=== PATIENT | female | born 1970 | race Two or more races ===

== ENCOUNTER 2021-09-03 10:08 | Outpatient (CLI) | payer OTHER, SELFPAY ==
[2021-09-03 17:14] LABS: Iron* 113 ug/dL (37-170)
[2021-09-03 17:23] LABS: Percent Iron Saturation 29 % (20-50); Total Iron Binding Capacity 396 ug/dL (265-497)
== END 2021-09-03 10:09 | disposition home or self-care (01) ==
LOC: LONREF 10:13
PROVIDERS: PCP Nurse Practitioner Family; Visit Provider Nurse Practitioner Family
DX: R53.83 Other fatigue (principal); E11.9 Type 2 diabetes mellitus without complications
CPT/HCPCS: 83540; 83550

== ENCOUNTER 2022-10-15 08:00 | Outpatient (CLI) | payer OTHER, SELFPAY | END 2022-10-15 08:01 | disposition home or self-care (01) | PROVIDERS: PCP Family Medicine; Visit Provider Family Medicine | DX: I10 Essential (primary) hypertension (principal); E78.5 Hyperlipidemia, unspecified | CPT/HCPCS: 80048; 80061 ==

== ENCOUNTER 2022-11-02 10:00 | Outpatient (CLI) | payer OTHER, MEDICAID, SELFPAY ==
--- NOTE | 2022-11-02 11:23 | W.ANESCHARGE ---
Anesthesia Charges Start Date/Time Anesthesia Start Date: 11/02/22 Anesthesia Start Time: 10:41 Stop Date/Time Anesthesia Stop Date: 11/02/22 Anesthesia Stop Time: 11:20
--- NOTE | 2022-11-02 12:07 | W.ANESCHARGE ---
Anesthesia Charges Start Date/Time Anesthesia Start Date: 11/02/22 Anesthesia Start Time: 10:41 Stop Date/Time Anesthesia Stop Date: 11/02/22 Anesthesia Stop Time: 11:20
== END 2022-11-02 10:01 | disposition home or self-care (01) ==
PROVIDERS: PCP Family Medicine; Visit Provider Surgery
DX: Z12.11 Encounter for screening for malignant neoplasm of colon (principal); K64.9 Unspecified hemorrhoids; K63.5 Polyp of colon
CPT/HCPCS: 00811; 45385; 88305; T1013; J2704

== ENCOUNTER 2023-07-22 09:32 | Outpatient (CLI) | payer BC, SELFPAY | END 2023-07-22 09:33 | disposition home or self-care (01) | LOC: LKVREF 09:33 | PROVIDERS: PCP Family Medicine; Visit Provider Obstetrics & Gynecology | DX: R32 Unspecified urinary incontinence (principal); B96.20 Unspecified Escherichia coli [E. coli] as the cause of diseases classified elsewhere | CPT/HCPCS: 87086; 87186 ==

== ENCOUNTER 2023-09-05 08:58 | Outpatient (CLI) | payer BC, SELFPAY | END 2023-09-05 08:59 | disposition home or self-care (01) | PROVIDERS: PCP Family Medicine; Visit Provider Family Medicine | DX: Z01.818 Encounter for other preprocedural examination (principal); I10 Essential (primary) hypertension; E78.5 Hyperlipidemia, unspecified; E11.9 Type 2 diabetes mellitus without complications | CPT/HCPCS: 80048; 80061 ==

== ENCOUNTER 2023-09-15 08:15 | Day surgery (SDC) | payer BC, SELFPAY ==
[2023-09-15] VITALS (19 sets, daily range): BP systolic 107–138; BP diastolic 61–99; PULSE 71–100; RESP 14–18; TEMP 36.1–37.1; O2SAT 97–100; BMI 22.5
[2023-09-15] MEDS: SODIUM CHLORIDE 0.9 % (FLUSH) 10 ML SYRINGE IVF (09:37)
[2023-09-15] MEDS: LACTATED RINGERS 1000 ML 1,000 ML 100 ML IV ×2 (09:37→12:07)
[2023-09-15 09:39] LABS: Hemoglobin* 13.4 gm/dL (12.0-16.0)
--- NOTE | 2023-09-15 09:49 | W.PM.H&PU ---
History & Physical Update History & Physical Update H&P Reviewed and patient assessed: No changes noted
[2023-09-15 09:53] LABS: Creatinine* 0.6 mg/dL (0.5-1.5); Est. Creatinine Clearance* 77.89; Estimated Glomerular Filt Rate 107 ml/min
[2023-09-15] MEDS: CEFAZOLIN 2 GM INJ IVP (10:06)
--- NOTE | 2023-09-15 11:01 | W.ANESCHARGE ---
Anesthesia Charges Start Date/Time Anesthesia Start Date: 09/15/23 Anesthesia Start Time: 09:50 Stop Date/Time Anesthesia Stop Date: 09/15/23 Anesthesia Stop Time: 12:59
[2023-09-15] MEDS: ESTROGENS, CONJUGATED VAGINAL 0.625 MG/G CREAM 1 APPLIC VAGINAL (12:32)
--- NOTE | 2023-09-15 12:57 | W.PM.GYNPROC ---
Procedure Note Date of procedure: 09/15/23 Will [facility] bill your pro fee for this procedure?: Yes Pre-op diagnosis: Pelvic Organ Prolapse, Stress Urinary Incontinence Post-op diagnosis: Pelvic Organ Prolapse, Stress Urinary Incontinence Procedure: Anterior and Posterior Colporrhaphy, Perineorrhaphy, Placement of single incision mini midurethral sling, cystoscopy Anesthesia: GETA Complications: None Surgeon: Anisha Acuna MD Sterilizer Machine Operator: Radha Capone Estimated blood loss (mL): 150 IV fluids (mL): 800 Urine Output (mL): 150 Pathology: none sent Condition: stable Disposition: floor Findings: Pelvic Exam: Posterior vaginal wall prolapse grade 4, anterior vaginal wall prolapse grade 2, vaginal cuff well supported. Cystoscopy: gas bubbles seen, bilateral ureteral jets seen, no suture material noted, one area at the dome of the bladder with a small blood clot most likely secondary to Barnard catheter. Posterior urethra without evidence of suture material or mesh. Procedure Description: Patient taken to operating room and GETA placed without difficulty. Patient placed in the lithotomy position cleansed and draped in the usual sterile manner. Barnard Catheter placed and bladder drained adequately. Attention was placed to the posterior vaginal wall prolapse. Two Allis clamps were placed at the level of the posterior hymen in a horizontal fashion about 4cm apart. Another Allis clamp was placed at the apex of the prolapse in the midline close to the vaginal cuff. Dilute solution of 1 % lidocaine and epinephrine was utilized for hydrodissection and injected to the vaginal mucosa, a horizontal incision was then made between the two Allis clamps, using Metzenbaum the vaginal mucosa was from underlying muscularis, a vertical incision was made using Metzenbaum scissors until about 1 cm below the apex. The edges of the vagina were grasped with Alvarez clamps and dissection of the vaginal flap was accomplished using the forefingers as well as Metzembaum scissors. The dissection was extended bilaterally until the rectocele was dissected completely from the vaginal wall. Utilizing Vicryl 2-0, plicating sutures were placed interruptedly in the vaginal muscularis and adventitia with resulting reduction of prolapse. The excess vaginal epithelium was then trimmed using Metzenbaum scissors. Proceeded with perineorrhaphy and a triangular incision was made into the midline of the perineum with the base of the triangle being the posterior hymen Allis clamps. The bulbocavernous and superficial transverse perineal muscles were plicate din the midline with interrupted sutures of Vicryl 2-0. The posterior vaginal mucosa was then closed using continuous interlocking suture of Vicryl 3-0. Perineal skin also approximated. Hemostasis secured. Attention was then placed to the anterior vagina. One Allis was placed 1cm from the external urethral meatus in the midline, a second Allis clamp was placed at about 2.5cm from the external urethral meatus to izzy the incision site for midurethral sling placement. Attention was then made to the anterior vaginal wall prolapse, using two Allis clamps the vagina mucosa was grasped at the apex of the prolapse, dilute solution of 1 % lidocaine and epinephrine was utilized for hydrodissection and injected to the vaginal mucosa, a 4cm horizontal incision was made between the two Allis clamps, using Metzenbaum the vaginal mucosa was from underlying muscularis, a vertical incision was made using Metzenbaum scissors until about 1 cm below the previously marked vagina. The edges of the vagina were grasped with Alvarez clamps and dissection of the vaginal flap was accomplished using the forefingers. The dissection was extended bilaterally until the cystocele was dissected completely from the vaginal wall. Utilizing Vicryl 2-0, plicating sutures were placed interruptedly in the vaginal muscularis and adventitia with resulting reduction of prolapse. The excess vaginal epithelium was then trimmed using Metzenbaum scissors and the anterior vaginal wall was closed using interrupted Vicryl 3-0. Attention was then placed to the midurethra, to the previously marked midurethra. Allis clamps were placed at the 1cm izzy and the 2.5cm izzy. Hydrodissection was made using dilute solution of 1 % lidocaine and epinephrine. A vertical incision was made between clamps and using Metzembaum scissors the vaginal mucosa was from the muscularis in a 45 degree angle until reaching the ischiopubic rami, same procedure was performed on the left. Edison sling was loaded into trocar and inserted to follow the incision, angled at a 45 degree until feeling the ischiopubic bone, the obturator internus muscle felt and progressive gentle pressure made until 2 clicks heard, and the trocar izzy was seen at the midurethra, the sling was deployed. The left end of sling was attached to trocar and same procedure was performed on the patients left. The trocar was left in place and not deployed, but significant bleeding was noted from dissection site and decision was made to evaluate the mesh at the mid urethra, mesh evaluated to have adequate tension. The trocar was deployed. The vaginal tissue was approximated with interrupted Vicryl 3-0 and pressure was then made to the left vaginal sulcus. This created adequate hemostasis. Sodium fluorescein had been given in preparation for cystoscopy. Cystoscopy was afterwards performed using a 30 degree scope. Findings as above. 2 connected vaginal packings with Premarin cream was placed vaginally, Barnard catheter placed again without difficulty and bright yellow/green urine seen. Patient did receive antibiotic prophylaxis with Ancef 2 g starting procedure.After finishing procedure, instrument and sponge count were correct times two. The patient was awaken from anesthesia and taken to recovery room in a stable condition. She will be monitored over night and post void residual volume will me measured in the morning.
--- NOTE | 2023-09-15 13:01 | W.ANESCHARGE ---
Anesthesia Charges Start Date/Time Anesthesia Start Date: 09/15/23 Anesthesia Start Time: 09:50 Stop Date/Time Anesthesia Stop Date: 09/15/23 Anesthesia Stop Time: 12:59
[2023-09-15] MEDS: ACETAMINOPHEN 500 MG TABLET 1000 MG PO (16:23)
[2023-09-15] MEDS: OXYCODONE 5 MG TABLET PO (18:28)
[2023-09-15] MEDS: KETOROLAC 30 MG/ML inj IVP (19:23)
--- NOTE | 2023-09-15 23:17 | PC.NURSE ---
End of Shift: Alert and orientated, pleasant... the patients daughter helps translate during cares. Barnard is patent and draining bright yellow urine from dye from surgery. VSS on RA... no issues. The patient reported a significant amount of leg/ chest heaviness. MD was notified, and the issue was improved per the patient. Saline locked, no N/V. Pain is noted to be moderate-severe in her vagina. Tylenol, tordol and PRN oxy order was obtained from interventional radiologist OBGYN. The patient reports adequate relief after administration. SCDs in place. Tolerating a regular diet with no issues. The patient did not want to ambulate/ dangle at the bedside due to leg heaviness. microbiological lab technician to come around 9 tomorrow. Call light within reach. The patients daughter is staying the night. Namita STEPHENS BSN
[2023-09-16 00:27] VITALS: BP 112/65; PULSE 69; RESP 16; TEMP 37.1; O2SAT 97
[2023-09-16] MEDS: OXYCODONE 5 MG TABLET PO (00:33)
[2023-09-16] MEDS: KETOROLAC 30 MG/ML inj IVP (00:34)
[2023-09-16] MEDS: IBUPROFEN 600 MG TABLET PO (04:33)
[2023-09-16 04:34] VITALS: BP 105/64; PULSE 67; RESP 16; TEMP 36.9; O2SAT 96
--- NOTE | 2023-09-16 06:38 | PC.NURSE ---
End of shift [id number]: A&O pleasant and cooperative. Daughter at bedside to translate when needed. Pt reports vaginal pain. See eMAR for interventions. Pt reports legs feeling stronger but doesn?t want get up overnight. Barnard in place and draining. VSS w/ sats >90% on RA. Using call light appropriately. ?
[2023-09-16 06:47] LABS: Hemoglobin* 11.4 gm/dL (12.0-16.0)
[2023-09-16 06:58] LABS: Creatinine* 0.6 mg/dL (0.5-1.5); Est. Creatinine Clearance* 77.89; Estimated Glomerular Filt Rate 107 ml/min
[2023-09-16 07:27] VITALS: BP 114/69; PULSE 67; RESP 16; TEMP 37.2; O2SAT 96
--- NOTE | 2023-09-16 07:57 | P.DS_ITS ---
DS: Providers Provider Date Seen: 09/16/23 Primary care physician: Sahil Agarwal MD Attending Physician on discharge: Dunia Acuna MD Date of Discharge: 09/16/23 DS: Diagnosis Discharge Diagnosis (1) S/P anterior colporrhaphy: Status: Acute Problem details: S/P Anterior and posterior colporrhaphy, perineorrhaphy, single incision mini sling insertion, cystoscopy FOLDING MACHINE TENDER-Discharge Summary Hospital Course Hospital Course Narrative: Patient is a 53 year old admitted on 09/15/23 for elective surgery. Indication for surgery: Pelvic organ prolapse. Intraoperative findings were notable for anterior vaginal wall prolapse grade 2, posterior vaginal wall prolapse grade 4, urinary stress incontinence. She had an uncomplicated surgery. Postoperative course has been uneventful. Vitals have been stable. She has remained afebrile. Today, on postoperative day 1, she reports the pain is well controlled. She has been able to ambulate Without difficulty. She is tolerating regular diet. She is passing flatus. Barnard catheter has been removed, and she is voiding without difficulty. Time Spent with Patient Time attestation: Total time spent providing and/or coordinating discharge services: FOLDING MACHINE TENDER - Exam Physical Exam: Vital signs: Temp Pulse Resp BP Pulse Ox O2 Del Method 98.5 F 67 16 105/64 96 Room Air 09/16/23 04:34 09/16/23 04:34 09/16/23 04:34 09/16/23 04:34 09/16/23 04:34 09/16/23 04:34 Narrative: VITAL SIGNS: As noted above. GENERAL APPEARANCE: Alert, cooperative female in no acute distress. MOOD & AFFECT: Normal. ABDOMEN: Soft, non-distended and nontender. Positive bowel sounds. : 2 connected vaginal packings removed and not soaked. No active bleeding noted after removal. Pad noted to filled with dark brown blood half of it, had not been changed since surgery. Barnard catheter with 250mL of bright yellow urine. EXTREMITIES: Nonedematous. Well perfused. Nontender. FOLDING MACHINE TENDER - DS: Data Data Completed and Pending Labs on day of discharge: Labs from last 24 hours 09/16/23 09/15/23 06:21 09:30 Hgb 11.4 L 13.4 Creatinine 0.6 0.6 Estimated Creat Clear 77.89 77.89 Estimated GFR 107 107 Procedures Procedures: Procedures Operation Date: 09/15/23 09:40 Actual Procedure Side Surgeon p Placement of Mid Urethral Sling Dunia Acuna MD s Anterior, Posterior Colporrhaphy, Cystoscopy, perineorapphy Dunia Spencer MD Discharge Plan Discharge Disposition: Home w/ Parent or Adult Discharging Surgeon: Dunia Acuna Follow-Up Appointment: 2 weeks in clinic Prescriptions: New acetaminophen 500 mg Tablet 1,000 mg PO Q6H PRN (Reason: minor pain) Qty: 15 0RF docusate sodium 100 mg Capsule 100 mg PO BID PRN (Reason: Constipation) Qty: 30 0RF ibuprofen 600 mg Tablet 600 mg PO Q6H Qty: 30 0RF Continued multivitamin [Multiple Vitamins] Tablet 1 tab PO QAM metformin 500 mg tablet 500 mg PO BIDWMEAL Qty: 180 3RF lisinopril 10 mg tablet 10 mg PO DAILY Discontinued acetaminophen 325 mg capsule 650 mg PO QID PRN Activity Level: Activity as Tolerated Activity Detail: No lifting more than 15-20 pounds for 6 weeks, nothing vaginally for 6 weeks, no soaking in tubs/lakes/pools until 2 week post op visit. Discharge Diet: Diabetic Patient Instructions: Acetaminophen (By mouth), Ibuprofen (By mouth), Laxative, Stool Softeners (By mouth), Deep Sedation (DC), Bladder Sling for Women (DC) Follow-up: Dunia Acuna MD [Staff Physician] - 09/28/23 9:45 am ([facility] for post-op) Sahil Agarwal MD [Primary Care Provider] - Discharge Orders: Discharge Order (Routine); Ordered 09/16/23 Ordered By: Dunia Acuna
[2023-09-16] MEDS: lisinopriL 10 MG TABLET PO (08:40)
[2023-09-16] MEDS: METFORMIN 500 MG TABLET PO (08:41)
--- NOTE | 2023-09-16 11:27 | PC.NURSE ---
Pt alert and oriented. Pt had complaints of pain ranging 2-3. Pt's daughter at bedside. Pt's garvin catheter removed by OBGYN. Pt's IV removed; catheter intact. D/C instructions done with hospital metal fabricator apprentice. Pt up moving independently. with minimal bloody drainage on pad.
== END 2023-09-16 10:17 | disposition home or self-care (01) ==
LOC: OR 08:19 → MEDSURG 08:31
PROVIDERS: PCP Family Medicine; Visit Provider Obstetrics & Gynecology
PROC: 0TSD0ZZ Reposition Urethra, Open Approach (ICD-10-PCS; CPT 57288; principal; 2023-09-15 09:30)
PROC: 0TJB8ZZ Inspection of Bladder, Via Natural or Artificial Opening Endoscopic (ICD-10-PCS; CPT 57260; 2023-09-15 09:30)
DX: N81.89 Other female genital prolapse (principal); N81.6 Rectocele; N39.3 Stress incontinence (female) (male); N81.10 Cystocele, unspecified; E11.9 Type 2 diabetes mellitus without complications; Z79.84 Long term (current) use of oral hypoglycemic drugs; I10 Essential (primary) hypertension; E78.5 Hyperlipidemia, unspecified
CPT/HCPCS: 57260; 57288; 00860; 36415; 82565; 82962; 85018; T1013; A4344; A9270; C1771; J0330; J0690; J1100; J1170; J1885; J2250; J2371; J2405; J2704; J3010; J7120

== ENCOUNTER 2024-11-09 09:09 | Outpatient (CLI) | payer BC, SELFPAY | END 2024-11-09 09:10 | disposition home or self-care (01) | PROVIDERS: PCP Family Medicine; Visit Provider Family Medicine | DX: I10 Essential (primary) hypertension (principal); E78.2 Mixed hyperlipidemia | CPT/HCPCS: 80048; 80061 ==